=== PATIENT | female | born 1990 | race American Indian/Alaskan Native ===

== ENCOUNTER 2019-03-14 11:11 | Inpatient (IN) | payer MEDICAID ==
[2019-03-14] MEDS ORDERED: PITOCin/NS 20 UNIT/1000ML DRIP 20,000 MILLIUNITS/1,000 ML BAG IV ONE (12:23)
[2019-03-14 12:41] LABS: Basophils % (Auto) 0.2 % (0.0-1.8); Eosinophils % (Auto) 0.4 % (0.0-4.3); Hematocrit 29.2 % (30.3-42.9); Hemoglobin 9.2 gm/dl (10.1-14.3); Lymphocytes # (Auto) 1.4 K/mm3 (1.2-5.4); Lymphocytes % (Auto) 10.8 % (13.4-35.0); Mean Corpuscular HGB Conc 32 % (30-34); Mean Corpuscular Volume 78 fl (79-97); Monocytes # (Auto) 0.7 K/mm3 (0.0-0.8); Monocytes % (Auto) 5.4 % (0.0-7.3); Platelet Count 182 K/mm3 (140-440); Red Blood Count 3.74 M/mm3 (3.65-5.03); Red Cell Distribution Width 16.9 % (13.2-15.2)
[2019-03-14] MEDS ORDERED: PITOCin/NS 20 UNIT/1000ML DRIP 20 UNITS/1,000 ML BAG IV SCH (13:00)
[2019-03-14] MEDS ORDERED: TUCKS PAD TP PRN (14:20)
[2019-03-14] MEDS ORDERED: ZOFRAN IV PRN (14:20)
[2019-03-14] MEDS ORDERED: PHENERGAN PR PRN (14:20)
[2019-03-14] MEDS ORDERED: LANSINOH TP PRN (14:20)
[2019-03-14] MEDS ORDERED: TYLENOL PO PRN (14:20)
[2019-03-14] MEDS ORDERED: BENADRYL PO PRN (14:20)
[2019-03-14] MEDS ORDERED: PHENERGAN PO PRN (14:20)
[2019-03-14] MEDS ORDERED: DULCOLAX PR PRN (14:20)
[2019-03-14] MEDS ORDERED: MILK OF MAGNESIA PO PRN (14:20)
[2019-03-14] MEDS ORDERED: NORCO 5/325 PO PRN (14:27)
--- NOTE | 2019-03-14 14:31 | History and Physical Report ---
History of Present Illness Date of examination: 03/14/19 Date of admission: 03/14/19 11:11 Chief complaint: I had a baby History of present illness: 28 year old female who states she didnt know she was had a baby at home an presented to [facility] via EMS. Past History Past Medical History: no pertinent history Social history: single - Obstetrical History Expected Date of Delivery: 03/15/19 Actual Gestation: 45 Week(s) 4 Day(s) Medications and Allergies Allergies Allergy/AdvReac Type Severity Reaction Status Date / Time No Known Allergies Allergy Unverified 03/14/19 12:21 Home Medications Medication Instructions Recorded Confirmed Last Taken Type Ferrous Sulfate [Feosol 325 MG tab] 325 mg PO BID #60 tablet 03/16/19 Unknown Rx Ibuprofen [Motrin] 800 mg PO Q8HR PRN #40 tablet 03/16/19 Unknown Rx Active Meds: Active Medications Acetaminophen (Tylenol) 650 mg PO Q4H PRN PRN Reason: Pain MILD(1-3)/Fever >100.5/GANDHI Acetaminophen/Hydrocodone Bitart ([place] 5/325) 2 each PO Q6H PRN PRN Reason: Pain, Moderate (4-6) Bisacodyl (Dulcolax) 10 mg GA BID PRN PRN Reason: Constipation Diphenhydramine HCl (Benadryl) 25 mg PO Q6H PRN PRN Reason: Itching Docusate Sodium (Colace) 100 mg PO BID [facility] Oxytocin/Sodium Chloride (Pitocin/Ns 20 Unit/1000ml Drip) 20 units in 1,000 mls @ 125 mls/hr IV DIRECT JANNA Last Admin: 03/14/19 13:12 Dose: 125 mls/hr Documented by: Ibuprofen (Ibuprofen) 600 mg PO Q6H JANNA Magnesium Hydroxide (Milk Of Magnesia) 30 ml PO HS PRN PRN Reason: Constipation Multi-Ingredient Ointment (Lansinoh) 1 applic TP PRN PRN PRN Reason: Sore Nipples Multivitamins/Iron/Calcium ( Vitamin) 1 each PO QDAY JANNA Ondansetron HCl (Zofran) 4 mg IV Q8H PRN PRN Reason: Nausea And Vomiting Promethazine HCl (Phenergan) 25 mg GA Q6H PRN PRN Reason: Nausea And Vomiting Promethazine HCl (Phenergan) 25 mg PO Q6H PRN PRN Reason: Nausea And Vomiting Sodium Chloride (Sodium Chloride Flush Syringe 10 Ml) 10 ml IV PRN NR Witch Any/Glycerin (Tucks Pad) 1 each TP PRN PRN PRN Reason: Hemorrhoid/cleansing/soothing Review of Systems All systems: negative - Vital Signs Vital signs: Vital Signs Pulse BP 90 124/57 03/14/19 11:25 03/14/19 11:25 Temp Pulse Resp BP Pulse Ox 98 F 56 L 16 122/70 100 03/14/19 13:50 03/14/19 13:50 03/14/19 13:50 03/14/19 13:50 03/14/19 13:50 - Physical Exam Breasts: Cardiovascular: Regular rate, Normal S1, Normal S2 Lungs: Positive: Clear to auscultation, Normal air movement Abdomen: Positive: normal appearance, soft, normal bowel sounds. Negative: distention, tenderness Vulva: both: normal Vagina: Positive: normal moisture. Negative: discharge Cervix: Negative: lesion, discharge Uterus: Positive: normal size, normal contour Adnexa: both: normal Anus/Rectum: Positive: normal perianal skin, heme negative. Negative: rectal mass, hemorrhoids Extremities: Deep Tendon Reflex Grade: Normal +2 Results Result Diagrams: 03/15/19 03:04 Abnormal lab results 03/14/19 Range/Units 11:10 WBC 12.6 H (4.5-11.0) K/mm3 Hgb 9.2 L (10.1-14.3) gm/dl Hct 29.2 L (30.3-42.9) % MCV 78 L (79-97) fl MCH 25 L (28-32) pg RDW 16.9 H (13.2-15.2) % Lymph % (Auto) 10.8 L (13.4-35.0) % Seg Neutrophils % 83.2 H (40.0-70.0) % Seg Neutrophils # 10.5 H (1.8-7.7) K/mm3 All other labs normal. Assessment and Plan Pt with no care and unaware of presents after home delivery. Will do full work up. to be seen by NICU.
[2019-03-14] MEDS ORDERED: SODIUM CHLORIDE FLUSH SYRINGE 10 ML IV SCH (15:00)
[2019-03-14] MEDS: IBUPROFEN PO SCH (15:33)
[2019-03-14 20:36] LABS: Amphetamine Screen,Urine PRESUMPTIVE NEGATIVE; Benzodiazepines Screen,Urine PRESUMPTIVE NEGATIVE; Cocaine Screen,Urine PRESUMPTIVE NEGATIVE; Methadone Screen,Urine PRESUMPTIVE NEGATIVE; Opiate Screen,Urine PRESUMPTIVE NEGATIVE
[2019-03-14 20:48] LABS: Cannabinoid Screen,Urine PRESUMPTIVE POSITIVE
[2019-03-15] MEDS: IBUPROFEN PO SCH ×5 (00:29→18:37)
[2019-03-15] MEDS: COLACE PO SCH ×3 (01:35→22:32)
[2019-03-15 03:28] LABS: Hematocrit 24.1 % (30.3-42.9); Hemoglobin 7.5 gm/dl (10.1-14.3)
[2019-03-15] MEDS ORDERED: PRENATAL VITAMIN PO SCH (10:00)
[2019-03-16] MEDS: IBUPROFEN PO SCH ×2 (06:00)
--- NOTE | 2019-03-16 10:51 | Progress Note ---
Assessment and Plan PPD 2 s/p at home. Pt insists that she was unaware of . Baby is currently with bili lights but mom is 48 hours and will be discharged. Subjective - Subjective Date of service: 03/16/19 Principal diagnosis: at home Patient reports: appetite normal, voiding normally, ambulating normally [place]: doing well Objective - Vital Signs Latest vital signs: Vital Signs Temp Pulse Resp BP BP Pulse Ox 03/16/19 08:50 98.4 F 64 20 89/59 03/16/19 00:16 97.4 F L 58 L 17 76/39 99 03/15/19 16:41 98.4 F 57 L 20 106/55 98 Intake and Output 03/15/19 03/16/19 03/16/19 22:59 06:59 14:59 Intake Total 120 240 Balance 120 240 Intake: Oral 120 240 Other: Total, Intake Amount 120 240 # Voids Void 1 1 - Exam Breasts: Present: deferred Cardiovascular: Present: Regular rate, Normal S1, Normal S2 Lungs: Present: Clear to auscultation, Normal air movement Abdomen: Present: normal appearance, soft, normal bowel sounds Vulva: both: normal Uterus: Present: normal, firm Extremities: Present: normal
--- NOTE | 2019-03-16 10:53 | Discharge Summary ---
Providers - Providers Date of Admission: 03/14/19 11:11 Date of discharge: 03/16/19 Attending physician: JORY HONEYCUTT 03/15/19 12:05 Consult to Case Management [CONS] Routine Services Needed at Discharge: Newborn Photographer Notified:: Mauri CHAVEZ Additional Physician Instructions: MOM AND BABY POSITIVE THC Primary care physician: SPRING ENCASER Hospitalization Reason for admission: active labor Delivery: Episiotomy: none Laceration: none Other procedures: none complications: none Discharge diagnosis: IUP at term delivered, other (no care), intrapartum demise baby: male Hospital course: unremarkable Condition at discharge: Good Disposition: DC-01 TO HOME OR SELFCARE Plan - Discharge Medications Prescriptions: Ferrous Sulfate [Feosol 325 MG tab] 325 mg PO BID #60 tablet Ibuprofen [Motrin] 800 mg PO Q8HR PRN #40 tablet PRN Reason: Pain, Mild (1-3) - Provider Discharge Summary Activity: routine, no sex for 6 weeks, no heavy lifting 4 weeks, no strenuous exercise Diet: routine Instructions: routine Additional instructions: [] Smoking cessation referral if applicable(refer to patient education folder for contact #) [] Refer to [facility] Booklet Call your doctor immediately for: * Fever > 100.5 * Heavy vaginal bleeding ( >1 pad per hour) * Severe persistent headache * Shortness of breath * Reddened, hot, painful area to leg or breast * Drainage or odor from incision. * Keep incision clean and dry at all times and follow doctor's instructions regarding bathing/showering - Follow up plan Follow up: JORY HONEYCUTT MD [Staff Physician] - 7 Days
[2019-03-16 17:56] VITALS: BP 91/52
== END 2019-03-16 19:45 | disposition home or self-care (01) | DRG 776 ==
LOC: LD 11:11 → OB 13:52
PROVIDERS: ADMIT Obstetrics & Gynecology; ATTEND Obstetrics & Gynecology
PROC: 3E0234Z Introduction of Serum, Toxoid and Vaccine into Muscle, Percutaneous Approach (ICD-10-PCS; principal; 2019-03-15)
DX: Z39.0 Encounter for care and examination of mother immediately after delivery (principal); Z23 Encounter for immunization
CPT/HCPCS: 36415; 80307; 85014; 85018; 85025; 85461; 86592; 86706; 86762; 86850; 86900; 86901; 87806; G0378; J2590; J2790